=== PATIENT | female | born 1950 | race African-American/Black ===

== ENCOUNTER 2018-09-25 10:14 | Day surgery (SDC) | payer MEDICARE ==
[~2018-09-25] VITALS: Ht 170.2 cm; Wt 78.5 kg
[2018-09-25 10:47] LABS: HEMATOCRIT 40.6 % (36.0-48.0); HEMOGLOBIN 13.4 g/dL (12-16); MCV 87.9 fL (80.0-100.0); MEAN PLATELET VOLUME 8.9 fL (7.4-10.4); RBC 4.62 10x6/uL (4.00-5.40); RDW 15.1 % (11.5-14.5); WBC 6.7 10x3/uL (4.8-10.8)
[2018-09-25 11:26] VITALS: BP 134/79; Ht 170.2 cm; Wt 78.5 kg
--- NOTE | 2018-10-10 12:37 | OP ---
PATIENT NAME: JEROME JUAREZ MEDICAL RECORD: [id number] :50 LOCATION:[facility] ADMISSION DATE: SURGEON: SLIM JONES DATE OF OPERATION: 09/25/2018 SURGEON: Slim Jones DPM PREOPERATIVE DIAGNOSES: 1. Hallux abductovalgus, right foot. 2. Hammertoe deformity, second toe, right foot. 3. Hammertoe deformity, third toe, right foot. 4. Hammertoe deformity, fourth toe, right foot. 5. Hammertoe deformity, fifth toe, right foot. POSTOPERATIVE DIAGNOSES: 1. Hallux abductovalgus, right foot. 2. Hammertoe deformity, second toe, right foot. 3. Hammertoe deformity, third toe, right foot. 4. Hammertoe deformity, fourth toe, right foot. 5. Hammertoe deformity, fifth toe, right foot. PROCEDURES: 1. El-Claudio bunionectomy. 2. Arthrodesis, second toe, right foot. 3. Arthrodesis, third toe, right foot. 4. Arthrodesis, fourth toe, right foot. 5. Arthroplasty, fifth toe, right foot. ANESTHESIA: General. HEMOSTASIS: Pneumatic ankle tourniquet inflated to 250 mmHg. ESTIMATED BLOOD LOSS: Minimal. MATERIALS: One 9-mm Quick Staple, one 2.5- x 18-mm headless Dart-Fire screw, and three 2.5- x 20-mm headless Dart-Fire screws (all [employer]). INJECTABLES: A 30 mL of 0.5% bupivacaine. INDICATIONS: The patient has long-standing history of pain associated with right foot deformities. She has tried wider shoes to no avail. We have discussed the previously mentioned procedures. Risks and benefits were discussed. Complications were reviewed. All questions were answered. She was appropriately consented for the above-mentioned procedures. DESCRIPTION OF PROCEDURE: The patient was brought in the operating room and placed on the operating table in supine position. A time-out was called with Dr. Jones, who identified the patient, the surgical site, and the surgery to be performed. Once appropriate anesthesia was obtained, the foot was prepped and draped in the usual aseptic manner. Once the appropriate anesthesia was obtained, the pneumatic ankle tourniquet was inflated to 250 mmHg on the well-padded right ankle. PROCEDURE #1: El-Claudio bunionectomy, right foot. OPERATIVE REPORT [id number] ANNFREDIS Attention was directed to the dorsal aspect of the first metatarsophalangeal joint, where a 6-cm curvilinear incision was made just medial to the extensor hallucis longus tendon. This incision was carried deep to soft tissue with care being taken to retract all vital neurovascular structures. All bleeders were cauterized along the way. The first intermetatarsal space was entered utilizing both sharp and blunt dissection. The conjoined tendon of the abductor hallucis tendon was noted at the base of the proximal phalanx and was sharply transected at this level. Attention was then directed further proximally to the level of the fibular sesamoid. Next, utilizing both sharp and blunt dissection, the fibular sesamoid was excised in toto. Attention was then directed to the dorsal aspect of the joint. The periosteum was reflected from the head of the first metatarsal and the base of the proximal phalanx, thus exposing the hypertrophied medial eminence of the first metatarsal head. Utilizing a sagittal saw, the medial eminence was resected. Next, utilizing a sagittal saw, a V-shaped osteotomy was created in the head of the first metatarsal. This was a [id number]-[id number] osteotomy with the apex oriented distally. The capital fragment was shifted laterally and impacted upon the first metatarsal shaft. Next, utilizing vibratory pile driver's recommended technique, one 2.5-mm screw was placed across the osteotomy. All remaining overhanging bone from the medial aspect of the first metatarsal was removed with a bone saw. Attention was then directed to the dorsal aspect of the proximal phalanx, where a V-shaped osteotomy was created in the proximal phalanx with the apex oriented laterally. The wedge of bone was removed. The osteotomy was reduced. Next, utilizing vibratory pile driver's recommended technique, one 9-mm Quick Staple was placed across the osteotomy. The surgical site was then irrigated with copious amounts of normal sterile saline via bulb syringe. The periosteum was then reapproximated and coapted using 3-0 Vicryl. The subcutaneous was then reapproximated and coapted using 3-0 Vicryl. The skin was then reapproximated and coapted using 4-0 nylon. PROCEDURE #2: Arthrodesis, second toe, right foot. Attention was directed to the dorsal aspect of the second toe of the right foot, where a 5-cm linear incision was made directly over the toe, extending to the level of the metatarsophalangeal joint. This incision was carried deep to soft tissue with care being taken to retract all vital neurovascular structures. All bleeders were cauterized along the way. The extensor tendon was then transected at the level of the proximal interphalangeal joint from medial to lateral. All soft tissue attachments were freed from the head of the proximal phalanx, thus exposing the head of this bone. Utilizing a single action bone cutter, the head of the proximal phalanx was removed. The cartilage from the base of the middle phalanx was also removed with a rongeur and curette. Attention was directed further proximally to the level of the metatarsophalangeal joint, where a capsulotomy was performed of medial, lateral, and dorsal soft tissue structures. Next, utilizing vibratory pile driver's recommended technique, one 20-mm Dart-Fire screw was placed across the arthrodesis site. Proper placement of the screw was confirmed via C-arm. The surgical site was then irrigated with copious amounts OPERATIVE REPORT [id number] JEROME JUAREZ of normal sterile saline. The extensor tendon was reapproximated and coapted using 3-0 Vicryl. The subcutaneous was reapproximated and coapted using 3-0 Vicryl. The skin was reapproximated and coapted using 4-0 nylon. PROCEDURE #3: Arthrodesis, third toe, right foot. The procedure that was performed on the second toe of the right foot was performed on the third toe of the right foot without exception. PROCEDURE #4: Arthrodesis, fourth toe, right foot. The exact same procedure that was performed on the toes 2 and 3 of the right foot was performed on the fourth toe of the right foot without exception. PROCEDURE #5: Arthroplasty, fifth toe, right foot. A 3-cm linear incision was made directly over the dorsal aspect of the fifth toe. This incision was carried deep to soft tissue with care taken to retract all vital neural structures. All bleeders were cauterized along the way. The extensor tendon was transected from medial to lateral. The capsular structures were freed from the head of the proximal phalanx. Next, utilizing the single action bone cutter, the head of the proximal phalanx was removed. The surgical site was then irrigated with copious amounts of normal sterile saline via bulb syringe. Attention was then directed to the level of the metatarsophalangeal joint, where the soft tissue structures were transected medially, laterally, and dorsally. The surgical site was then reirrigated with copious amounts of normal sterile saline. The extensor tendon was then reapproximated and coapted using 3-0 Vicryl. The subcutaneous was reapproximated and coapted using 3-0 Vicryl. The skin was reapproximated and coapted using 4-0 nylon. A dressing consisting of Xeroform, 4 x 4, Kerlix, and Coban was applied to the right foot. The pneumatic ankle tourniquet was deflated and cap refill time was immediate to all digits of the right foot. The patient was discharged home with instructions to ice and elevate the right foot. She was dispensed a boot to help further offload the foot. She was dispensed prescriptions for Moira 5/325, Phenergan 25 mg, and ibuprofen 800 mg. She was provided with Dr. Jones's cell phone number for any afterhours difficulties. She has a follow up on next September 30. There were no complications with this procedure. TRANSINT:[id number] Voice Confirmation ID: [id number] DOCUMENT ID: [id number] SLIM JONES at 1237 CC: [id number] DICTATION DATE: 09/25/18 151 GORE STITCHER: 09/25/18 1829 [facility] [place] 09/25/18 [place] [id number]
== END 2018-09-25 15:55 | disposition home or self-care (01) ==
LOC: D.OPS 10:14
PROVIDERS: Anesthesiology; ATTEND Podiatrist
DX: M20.11 Hallux valgus (acquired), right foot (principal); M20.41 Other hammer toe(s) (acquired), right foot; Z01.812 Encounter for preprocedural laboratory examination